=== PATIENT | female | born 1975 ===

== ENCOUNTER 2016-07-28 00:11 | Observation (INO) | payer BC ==
[2016-07-28 00:32] LABS: BASO % 0.4 % (0-6); EOS % 3.8 % (0-6); GRAN % 67.6 % (47-80); HEMATOCRIT 37.5 % (35.0-47.0); HEMOGLOBIN 12.5 gm/dl (11.6-16.0); LYMPH % 19.6 % (16-45); MEAN CELL VOLUME 88.9 fl (81-97); MEAN CORPUSCULAR HEMOGLOBIN 29.6 pg (27-33); MEAN CORPUSCULAR HGB CONC 33.3 g/dl (32-36); MEAN PLATELET VOLUME 10.5 fl (7.4-10.4); MONO % 8.6 % (0-9); PLATELET COUNT 257 K/uL (130-400); RED BLOOD COUNT 4.22 M/uL (3.80-5.40); RED CELL DISTRIBUTION WIDTH 14.5 % (11.5-14.5); WHITE BLOOD COUNT W/O DIFF 10.4 K/uL (4.2-12.2)
[2016-07-28 00:43] LABS: ALB/GLOB RATIO 1.4 (1.1-1.8); ALKALINE PHOSPHATASE 59 U/L (38-126); ALT/SGPT 21 U/L (9-52); ANION GAP 10.2 (7-16); AST/SGOT 20 U/L (14-36); BILIRUBIN,TOTAL 0.43 mg/dL (0.2-1.3); BLOOD UREA NITROGEN 11 mg/dL (7-17); CARBON DIOXIDE 21.8 mmol/L (22-30); CREATININE 0.8 mg/dL (0.52-1.04); EST GLOMERULAR FILTRATION RATE > 60 ml/min; GLUCOSE,RANDOM 59 mg/dL (70-110); TOTAL PROTEIN 6.8 gm/dL (6.3-8.2)
--- NOTE | 2016-07-28 00:50 | Emergency Department Record ---
History of Present Illness - General Chief complaint: Hypogylcemia Stated complaint: LOW BLOOD SUGAR Time Seen by Provider: 07/28/16 00:18 Source: Patient Mode of Arrival: EMS Limitations: No limitations - History of Present Illness Initial comments: 41 yo female with a previous history of IDDM presents to ED following a hypoglycemic episode and possible seizure. EMS reports that the patient was found unresponsive, glucose < 10. D25 was administered with increase in glucose to 72. En-route, patient's glucose dropped to 30, glucose was repeated. On arrival, patient is unaware of what happened and reports that she is feeling much better. Patient denies headache, body aches, or recent illness. Patient reports taking both her Levimir and Novolog tonight as usual, did eat dinner but reports "I didn't eat any carbs, that may be whey my sugar dropped". MD Complaint: Generalized weakness Onset/Timin -: Hour(s) Location: Generalized Severity: Moderate Improves with: Medication Associated Symptoms: Denies other symptoms - Dev[place] Coma Scale Eye Response: (4) Open spontaneously Motor Response: (6) Obeys commands Verbal Response: (5) Oriented Devens Total: 15 - Related Data Home Medications Medication Instructions Recorded Confirmed Last Taken Calcium Carbonate [Calcium] 600 mg PO BID tab 09/18/15 07/28/16 09/18/15 Carvedilol [Coreg] 25 mg PO BID tab 09/18/15 07/28/16 09/18/15 Insulin Aspart [Novolog] 0 unit SQ 0745,1215,2200 cartridge 09/18/15 07/28/16 09/18/15 Insulin Detemir [Levemir Flextouch] 10 unit SQ QHS pen.injctr 09/18/1509/18/15 Insulin Detemir [Levemir Flextouch] 15 unit SQ QAM pen.injctr 09/18/1509/18/15 Multivitamin [Multi-Day Vitamins] 1 each PO DAILY tab 09/18/15 07/28/16 Mycophenolate Mofetil [Cellcept] 1,000 mg PO BID tab 09/18/15 07/28/16 09/18/15 Prednisone 5 mg PO DAILY tab 09/18/15 07/28/16 09/18/15 Ranitidine HCl [Zantac] 150 mg PO QHS tab 09/18/15 07/28/16 Unknown Tacrolimus 2 mg PO BID cap 09/18/15 07/28/16 09/18/15 Allergies Allergy/AdvReac Type Severity Reaction Status Date / Time amoxicillin Allergy Intermediate hives Verified 07/28/16 00:19 NSAIDS (Non-Steroidal Allergy Pt hx of Verified 07/28/16 00:19 Anti-Inflamma renal transplant Travel Screening - Travel/Exposure Within Last 30 Days Have you traveled within the last 30 days?: No - Travel/Exposure Within Last Year Have you traveled outside the [place] in the last year?: No - Additonal Travel Details Have you been exposed to anyone with a communicable illness?: No - Travel Symptoms Symptom Screening: None Review of Systems Constitutional: Denies: Chills, Fever, Malaise, Night sweats Eyes: Denies: Eye discharge, Eye pain ENT: Denies: Congestion, Ear pain, Epistaxis Respiratory: Denies: Cough, Dyspnea Cardiovascular: Denies: Chest pain, Dyspnea on exertion Endocrine: Denies: Fatigue, Heat or cold intolerance Gastrointestinal: Denies: Abdominal pain, Nausea, Vomiting Genitourinary: Denies: Incontinence, Retention Musculoskeletal: Denies: Arthralgia, Back pain, Gout, Joint swelling Skin: Denies: Bruising, Change in color Neurological: Denies: Abnormal gait, Confusion, Headache, Seizure Psychiatric: Denies: Anxiety Hematological/Lymphatic: Denies: Anemia, Blood Clots Past Medical History - SOCIAL HISTORY Smoking Status: Former smoker Alcohol Use: Occassional Drug Use: None - RESPIRATORY Hx Respiratory Disorders: No - CARDIOVASCULAR Hx Cardio Disorders: Yes Hx Hypertension: Yes - NEURO Hx Neuro Disorders: No - GI Hx GI Disorders: Yes Hx Abdominal Pain: Yes - Hx Genitourinary Disorders: Yes Hx Renal Disease: Yes Comment:: kidney transplant - ENDOCRINE Hx Endocrine Disorders: Yes Hx Diabetes: Yes (dx 8yo) - MUSCULOSKELETAL Hx Musculoskeletal Disorders: No - PSYCH Hx Psych Problems: No - HEMATOLOGY/ONCOLOGY Hx Hematology/Oncology Disorders: Yes Comment:: Basel cell carcinoma in july 2015 on left mid outer abdomin Family Medical History Any Significant Family History?: No Hx Cancer: Father, Mother Hx Heart Disease: Mother Hx HTN: Mother Physical Exam - General General Appearance: Alert, Oriented x3, Cooperative, No acute distress Limitations: No limitations - Head Head exam: Atraumatic, Normocephalic, Normal inspection Head exam detail: negative: Abrasion, Contusion, Ackerman's sign, General tenderness, Hematoma, Laceration - Eye Eye exam: Normal appearance. negative: Conjunctival injection, Periorbital swelling, Periorbital tenderness, Scleral icterus - ENT Ear exam: negative: Auricular hematoma, Auricular trauma Nasal Exam: negative: Active bleeding, Discharge, Dried blood, Foreign body Mouth exam: negative: Drooling, Laceration, Muffled voice, Tongue elevation - Neck Neck exam: Normal inspection. negative: Meningismus, Tenderness - Respiratory Respiratory exam: Normal lung sounds bilaterally. negative: Rales, Respiratory distress, Rhonchi, Stridor - Cardiovascular Cardiovascular Exam: Regular rate, Normal rhythm, Normal heart sounds - GI/Abdominal GI/Abdominal exam: Soft. negative: Rebound, Rigid, Tenderness - Rectal Rectal exam: Deferred - exam: Deferred - Extremities Extremities exam: Normal inspection. negative: Calf tenderness, Pedal edema, Tenderness - Back Back exam: Denies: CVA tenderness (R), CVA tenderness (L) - Neurological Neurological exam: Alert, Normal gait, Oriented X3 - Psychiatric Psychiatric exam: Normal affect, Normal mood - Skin Skin exam: Normal color. negative: Abrasion Type of lesion: negative: abrasion Course Vital Signs 07/28/16 07/28/16 00:18 00:19 Temperature 97.5 F L Pulse Rate 71 Pulse Rate [ 72 Pulse Ox Probe] Respiratory 18 18 Rate Blood Pressure 125/64 Blood Pressure 125/64 [Left Arm] Pulse Ox 96 96 - Reevaluation(s) Reevaluation #1: 07/28/16 00:45 On arrival, BS at 00:13 was 107 Labs resulted from blood draw at 00:25, glucose 59. Patient is currently eating , will recheck glucose at 1:00. Reevaluation #2: 07/28/16 01:05 Repeat accu check is 50 after eating peanut butter toast and orange juice, will initiate D51/2 NS at 100 mL/hour and admit for observation due to recurrent hypoglycemia. Reevaluation #3: 07/28/16 06:40 Case was discussed with Olya Neff, will accept admission at this time. Medical Decision Making - Lab Data Result diagrams: 07/28/16 00:25 07/28/16 00:25 Lab Results 07/28/16 07/28/16 07/28/16 Range/Units 00:13 00:25 00:25 WBC 10.4 (4.2-12.2) K/uL RBC 4.22 (3.80-5.40) M/uL Hgb 12.5 (11.6-16.0) gm/dl Hct 37.5 (35.0-47.0) % MCV 88.9 (81-97) fl MCH 29.6 (27-33) pg MCHC 33.3 (32-36) g/dl RDW 14.5 (11.5-14.5) % Plt Count 257 (130-400) K/uL MPV 10.5 H (7.4-10.4) fl Gran % 67.6 (47-80) % Lymphocytes % 19.6 (16-45) % Monocytes % 8.6 (0-9) % Eosinophils % 3.8 (0-6) % Basophils % 0.4 (0-6) % Sodium 142 (136-145) mmol/L Potassium 3.0 L (3.5-5.1) mmol/L Chloride 110 H (98-107) mmol/L Carbon Dioxide 21.8 L (22-30) mmol/L Anion Gap 10.2 (7-16) BUN 11 (7-17) mg/dL Creatinine 0.8 (0.52-1.04) mg/dL Estimated GFR > 60 ml/min POC Glucose 107 (70-110) mg/dL Random Glucose 59 L (70-110) mg/dL Calcium 9.6 (8.5-10.1) mg/dL Total Bilirubin 0.43 (0.2-1.3) mg/dL AST 20 (14-36) U/L ALT 21 (9-52) U/L Alkaline Phosphatase 59 (38-126) U/L Total Protein 6.8 (6.3-8.2) gm/dL Albumin 4.0 (3.5-5.0) gm/dL Globulin 2.8 (1.4-4.8) gm/dL Albumin/Globulin Ratio 1.4 (1.1-1.8) Disposition Disposition: Admit Clinical Impression: Hypoglycemia, Insulin dependent diabetes mellitus Disposition: Still a Patient at [facility] Decision to Admit: Admit from ER Decision to Admit Date: 07/28/16 Decision to Admit Time: :07 Condition: (2) Stable Time of Disposition: 01:07
[2016-07-28] MEDS ORDERED: DEXTROSE 5 %-0.45 % NACL 1,000 ML IV PRN (02:01)
[2016-07-28] MEDS ORDERED: ACETAMINOPHEN 500 MG TABLET PO PRN (02:01)
--- NOTE | 2016-07-28 06:54 | History & Physical ---
History of Present Illness - Date of Service Date of Service for History & Physical: 07/28/16 - History of Present Illness Admitting Diagnosis: recurrent hypoglycemia. IDDM. Renal transplant History of Present Illness: 41 yo insulin dependent diabetic admitted for hypoglycemia. PMHx of type one diabetic, htn, obesity, acid reflux and s/p kidney transplant in 2010. Patient's fiance called EMS as patient became unresponsive at home. When EMS arrived, patient had a glucose of 10. D25 administered and glucose increased to 72, however dropped to 30 en route. Patient states she felt much improved once she arrived to the ED though states she felt very exhausted. Patient's VSS upon arrival. BS 59 according to blood drawn at 00:25. She ate a peanut butter toast and orange juice, glucose 50 following. She was started on D51/2 NS @ 100 mls/hr and admitted for further medical management. This morning, patient is lying in bed comfortably. VS remain stable. She tolerated breakfast appropriately. Glucose 177. She denies any h/o similar episodes. States she's been very stressed as she's getting in two weeks. Stress typically causes her BS's to rise and fall. She denies any recent changes to her medications. States she took her 10 Unites of Levemir last night along with her Novolg, however she did not have any carbs with dinner. She denies any lightheadedness, fever, chills, nausea, change in bowel habits, diaphoresis, changes in weight, cough or SOB. PCP: Dr. Noguera Travel Screening - Travel/Exposure Within Last 30 Days Have you traveled within the last 30 days?: No - Travel/Exposure Within Last Year Have you traveled outside the [place] in the last year?: No - Additonal Travel Details Have you been exposed to anyone with a communicable illness?: No - Travel Symptoms Symptom Screening: None Review of Systems Constitutional: Denies: Chills, Fever, Malaise, Night sweats Eyes: Denies: Eye discharge, Eye pain ENT: Denies: Congestion, Ear pain, Epistaxis Respiratory: Denies: Cough, Dyspnea Cardiovascular: Denies: Chest pain, Dyspnea on exertion Endocrine: Denies: Fatigue, Heat or cold intolerance Gastrointestinal: Denies: Abdominal pain, Nausea, Vomiting Genitourinary: Denies: Incontinence, Retention Musculoskeletal: Denies: Arthralgia, Back pain, Gout, Joint swelling Skin: Denies: Bruising, Change in color Neurological: Denies: Abnormal gait, Confusion, Headache, Seizure Psychiatric: Denies: Anxiety Hematological/Lymphatic: Denies: Anemia, Blood Clots Past Medical History - SOCIAL HISTORY Smoking Status: Former smoker Alcohol Use: Occassional Drug Use: None - RESPIRATORY Hx Respiratory Disorders: No - CARDIOVASCULAR Hx Cardio Disorders: Yes Hx Hypertension: Yes - NEURO Hx Neuro Disorders: No - GI Hx GI Disorders: Yes Hx Abdominal Pain: Yes - Hx Genitourinary Disorders: Yes Hx Renal Disease: Yes Comment:: kidney transplant - ENDOCRINE Hx Endocrine Disorders: Yes Hx Diabetes: Yes (dx 8yo) - MUSCULOSKELETAL Hx Musculoskeletal Disorders: No - PSYCH Hx Psych Problems: No - HEMATOLOGY/ONCOLOGY Hx Hematology/Oncology Disorders: Yes Comment:: Basel cell carcinoma in july 2015 on left mid outer abdomin Family Medical History Any Significant Family History?: No Hx Cancer: Father, Mother Hx Heart Disease: Mother Hx HTN: Mother H&P Meds/Allergies - Allergies Allergies: Allergies Allergy/AdvReac Type Severity Reaction Status Date / Time amoxicillin Allergy Intermediate hives Verified 07/28/16 00:19 NSAIDS (Non-Steroidal Allergy Pt hx of Verified 07/28/16 00:19 Anti-Inflamma renal transplant - Home Medications Home Medications Medication Instructions Recorded Confirmed Last Taken Calcium Carbonate [Calcium] 600 mg PO BID tab 09/18/15 07/28/16 09/18/15 Carvedilol [Coreg] 25 mg PO BID tab 09/18/15 07/28/16 09/18/15 Insulin Aspart [Novolog] 0 unit SQ 0745,1215,2200 cartridge 09/18/15 07/28/16 09/18/15 Insulin Detemir [Levemir Flextouch] 10 unit SQ QHS pen.injctr 09/18/1509/18/15 Insulin Detemir [Levemir Flextouch] 15 unit SQ QAM pen.injctr 09/18/1509/18/15 Multivitamin [Multi-Day Vitamins] 1 each PO DAILY tab 09/18/15 07/28/16 Mycophenolate Mofetil [Cellcept] 1,000 mg PO BID tab 08/04/3007/28/16 09/18/15 Prednisone 5 mg PO DAILY tab 09/18/15 07/28/16 09/18/15 Ranitidine HCl [Zantac] 150 mg PO QHS tab 09/18/15 07/28/16 Unknown Tacrolimus 2 mg PO BID cap 09/18/15 07/28/16 09/18/15 - Active Medications Active Medications: Current Medications Acetaminophen (Tylenol 500mg Tab) 1,000 mg PO Q6H PRN PRN Reason: PAIN/TEMP Carvedilol (Coreg) 25 mg PO BID BLANCO Dextrose/Sodium Chloride () 1,000 mls @ 100 mls/hr IV .Q10H PRN PRN Reason: Hyperglycemica Insulin Aspart (Novolog Flexpen) 10 unit SQ 0745,1215,2200 BLANCO Non-Formulary Medication (Mycophenolate Mofetil [Cellcept]) 1,000 mg PO BID BLANCO Non-Formulary Medication (Tacrolimus [Tacrolimus]) 2 mg PO BID BLANCO Prednisone (Prednisone 5mg) 5 mg PO DAILYWM [facility] Physical Exam - Vital Signs Vital Signs: Vital Signs - Last 24 Hrs Temp Pulse Resp BP Pulse Ox 07/28/16 02:01 97.4 F L 69 20 110/65 96 - General General Appearance: Alert, Oriented x3, Cooperative, No acute distress Limitations: No limitations - Head Head exam: Atraumatic, Normocephalic, Normal inspection Head exam detail: negative: Abrasion, Contusion, Ackerman's sign, General tenderness, Hematoma, Laceration - Eye Eye exam: Normal appearance. negative: Conjunctival injection, Periorbital swelling, Periorbital tenderness, Scleral icterus - ENT Ear exam: negative: Auricular hematoma, Auricular trauma Nasal Exam: negative: Active bleeding, Discharge, Dried blood, Foreign body Mouth exam: negative: Drooling, Laceration, Muffled voice, Tongue elevation - Neck Neck exam: Normal inspection. negative: Meningismus, Tenderness - Respiratory Respiratory exam: Normal lung sounds bilaterally. negative: Rales, Respiratory distress, Rhonchi, Stridor - Cardiovascular Cardiovascular Exam: Regular rate, Normal rhythm, Normal heart sounds - GI/Abdominal GI/Abdominal exam: Soft. negative: Rebound, Rigid, Tenderness - Rectal Rectal exam: Deferred - exam: Deferred - Extremities Extremities exam: Normal inspection. negative: Calf tenderness, Pedal edema, Tenderness - Back Back exam: Denies: CVA tenderness (R), CVA tenderness (L) - Neurological Neurological exam: Alert, Normal gait, Oriented X3 - Psychiatric Psychiatric exam: Normal affect, Normal mood - Skin Skin exam: Normal color. negative: Abrasion Type of lesion: negative: abrasion Results - Labs Result Diagrams: 07/28/16 00:25 07/28/16 00:25 Labs Last 24 Hours: Laboratory Results - last 24 hr 07/28/16 07/28/16 07/28/16 02:00 02:45 04:00 POC Glucose 60 L 88 155 H 07/28/16 06:06 POC Glucose 177 H VTE H&P Assessment - Risk for VTE Risk for VTE: Yes Risk Level: Low Risk Assessment Date: 07/28/16 Risk Assessment Time: 10:00 VTE Orders Placed or Will Be Placed: No VTE Reason for No Prophylaxis: Not Indicated Plan - Detailed Diagnosis and Plan (1) Hypoglycemia Current Visit: Yes Status: Acute Base Code: E16.2 - HYPOGLYCEMIA, UNSPECIFIED Comment: 07/28: - continue diabetic diet - Will d/c D51/2 NS as glucose 177 this morning - Continue home diabetic medications - Monitor glucose Q2 hours (2) Hypokalemia Current Visit: Yes Status: Acute Base Code: E87.6 - HYPOKALEMIA Comment: - - Potassium 3.0 - 40 mEq PO Potassium supplementation (3) Insulin dependent diabetes mellitus Current Visit: Yes Status: Acute Base Code: E11.9 - TYPE 2 DIABETES MELLITUS WITHOUT COMPLICATIONS; Z79.4 - BEARING GRINDER (CURRENT) USE OF INSULIN Comment: 07/28- continue home medications- Levemir 15 Units qam, 10 Units qpm. Novolog sliding scale. (4) Full code status Current Visit: No Status: Acute Base Code: Z78.9 - OTHER SPECIFIED HEALTH STATUS Comment: 07/28- pt full code (5) DVT prophylaxis Current Visit: Yes Status: Acute Base Code: [id number] - Comment: 07/28- low risk. patient ambulating the room.
[2016-07-28] MEDS ORDERED: PREDNISONE 5 MG TAB PO SCH (08:00)
[2016-07-28] MEDS: NOVOLOG FLEXPEN (INSULIN ASPART) 100 UNITS/ML SQ SCH ×2 (08:16→12:58)
[2016-07-28] MEDS ORDERED: POTASSIUM CHLORIDE 20 MEQ TABLET PO SCH (10:00)
[2016-07-28] MEDS ORDERED: MYCOPHENOLATE MOFETIL 1000 MG PO SCH (10:00)
[2016-07-28] MEDS ORDERED: TACROLIMUS 2 MG PO SCH (10:00)
[2016-07-28] MEDS ORDERED: CARVEDILOL 12.5 MG TABLET PO SCH (10:00)
--- NOTE | 2016-07-28 10:48 | Discharge Summary ---
Providers Discharge Summary Date: 07/28/16 Date of admission: 07/28/16 01:37 Expected Date of Discharge: 07/28/16 Attending physician: ANNA BROUSSARD Physical Exam - Vital Signs Vital Signs: Vital Signs - Last 24 Hrs Temp Pulse Pulse Resp BP Pulse Ox 07/28/16 10:01 98.5 F 73 73 14 108/64 96 07/28/16 09:00 73 73 14 07/28/16 02:01 97.4 F L 69 20 110/65 96 - General General Appearance: Alert, Oriented x3, Cooperative, No acute distress Limitations: No limitations - Head Head exam: Atraumatic, Normocephalic, Normal inspection Head exam detail: negative: Abrasion, Contusion, Ackerman's sign, General tenderness, Hematoma, Laceration - Eye Eye exam: Normal appearance. negative: Conjunctival injection, Periorbital swelling, Periorbital tenderness, Scleral icterus - ENT Ear exam: negative: Auricular hematoma, Auricular trauma Nasal Exam: negative: Active bleeding, Discharge, Dried blood, Foreign body Mouth exam: negative: Drooling, Laceration, Muffled voice, Tongue elevation - Neck Neck exam: Normal inspection. negative: Meningismus, Tenderness - Respiratory Respiratory exam: Normal lung sounds bilaterally. negative: Rales, Respiratory distress, Rhonchi, Stridor - Cardiovascular Cardiovascular Exam: Regular rate, Normal rhythm, Normal heart sounds - GI/Abdominal GI/Abdominal exam: Soft. negative: Rebound, Rigid, Tenderness - Rectal Rectal exam: Deferred - exam: Deferred - Extremities Extremities exam: Normal inspection. negative: Calf tenderness, Pedal edema, Tenderness - Back Back exam: Denies: CVA tenderness (R), CVA tenderness (L) - Neurological Neurological exam: Alert, Normal gait, Oriented X3 - Psychiatric Psychiatric exam: Normal affect, Normal mood - Skin Skin exam: Normal color. negative: Abrasion Type of lesion: negative: abrasion Hospitalization - Hospitalization Admission Diagnosis: recurrent hypoglycemia. IDDM. Renal transplant - Problem List/Discharge Diagnosis (1) Hypoglycemia Current Visit: Yes Status: Acute Base Code: E16.2 - HYPOGLYCEMIA, UNSPECIFIED Comment: 07/28: - glucose 138 following breakfast and morning Levemir dose. - continue diabetic diet & home diabetic medications - Monitor glucose fasting in the morning and w/ meals/snacks. - follow up with Dr. Noguera's PALainey 07/30 @ 1:00 pm. - patient agree's to return to the ED re any new or worsening symptoms such as weakness, lightheadedness, fever, chills, n/v, diaphoresis, etc. (2) Hypokalemia Current Visit: Yes Status: Acute Base Code: E87.6 - HYPOKALEMIA Comment: - - Potassium 3.0 - 40 mEq PO Potassium supplementation administered - have labs rechecked within 1-2 days of d/c and follow up with PCP re results. (3) Insulin dependent diabetes mellitus Current Visit: Yes Status: Acute Base Code: E11.9 - TYPE 2 DIABETES MELLITUS WITHOUT COMPLICATIONS; Z79.4 - COLD ROLL CATCHER (CURRENT) USE OF INSULIN Comment: 07/28- - continue home medications- Levemir 15 Units qam, 10 Units qpm. Novolog sliding scale. - monitor BS's at home four times daily (fasting and with every meal and snack) . (4) Full code status Current Visit: No Status: Acute Base Code: Z78.9 - OTHER SPECIFIED HEALTH STATUS Comment: 07/28- pt remained full code - Hospitalization Course Disposition: Home, Self-Care Hospital Course: 41 yo insulin dependent diabetic admitted for hypoglycemia. PMHx of type one diabetic, htn, obesity, acid reflux and s/p kidney transplant in 2010. Patient's fiance called EMS as patient became unresponsive at home. When EMS arrived, patient had a glucose of 10. D25 administered and glucose increased to 72, however dropped to 30 en route. Patient states she felt much improved once she arrived to the ED though states she felt very exhausted. Patient's VSS upon arrival. BS 59 according to blood drawn at 00:25. She ate a peanut butter toast and orange juice, glucose 50 following. She was started on D51/2 NS @ 100 mls/hr and admitted for further medical management. This morning, patient is lying in bed comfortably. VS remain stable. She tolerated breakfast appropriately. Glucose 177. She denies any h/o similar episodes. States she's been very stressed as she's getting in two weeks. Stress typically causes her BS's to rise and fall. She denies any recent changes to her medications. States she took her 10 Unites of Levemir last night along with her Novolg, however she did not have any carbs with dinner. She denies any lightheadedness, fever, chills, nausea, change in bowel habits, diaphoresis, changes in weight, cough or SOB. PCP: Dr. Noguera Abnormal Labs: Abnormal Lab Results 07/28/16 07/28/16 07/28/16 Range/Units 02:00 04:00 06:06 POC Glucose 60 L 155 H 177 H (70-110) mg/dL 07/28/16 Range/Units 09:33 POC Glucose 232 H (70-110) mg/dL Condition at Discharge: (2) Stable Discharge Medications - Discharge Medications Home Medications: Ambulatory Orders Calcium Carbonate [Calcium] 600 mg PO BID tab 09/18/15 [Last Taken 09/18/15] Carvedilol [Coreg] 25 mg PO BID tab 09/18/15 [Last Taken 09/18/15] Insulin Aspart [Novolog] 0 unit SQ 0745,1215,2200 cartridge 09/18/15 [Last Taken 09/18/15] Insulin Detemir [Levemir Flextouch] 10 unit SQ QHS pen.injctr 09/18/15 [Last Taken 09/18/15] Insulin Detemir [Levemir Flextouch] 15 unit SQ QAM pen.injctr 09/18/15 [Last Taken 09/18/15] Multivitamin [Multi-Day Vitamins] 1 each PO DAILY tab 09/18/15 [Last Taken 04/30] Mycophenolate Mofetil [Cellcept] 1,000 mg PO BID tab 09/18/15 [Last Taken 09/17] Prednisone 5 mg PO DAILY tab 09/18/15 [Last Taken 09/18/15] Ranitidine HCl [Zantac] 150 mg PO QHS tab 09/18/15 [Last Taken Unknown] Tacrolimus 2 mg PO BID cap 09/18/15 [Last Taken 09/18/15] Discharge Plan - Discharge Instructions Activity at Discharge: Increase Activity as Tolerated Diet at Discharge: Diabetic Diet Additional Instructions: Continue home medications. Monitor blood sugars fasting in the morning and with each meal/snack. continue diabetic diet. Please be sure to keep blood sugars above 80. get lab work done within 1-2 days Follow up with Dr. Noguera'Lainey Barbosa 07/30 @ 1:00 pm. Please return to the ER in the meantime re any new or worsening symptoms such as weakness, lightheadedness, drop in blood sugars below 80, diaphoresis, confusion or fevers.
== END 2016-07-28 12:43 | disposition home or self-care (01) ==
LOC: ER 00:11 → MEDSURG 01:37
PROVIDERS: ADMIT Family Medicine; ATTEND Family Medicine
DX: E11.649 Type 2 diabetes mellitus with hypoglycemia without coma (principal); Z79.84 Long term (current) use of oral hypoglycemic drugs; E87.6 Hypokalemia; Z78.9 Other specified health status
CPT/HCPCS: 99285 ×2; 96365; 85025; 80053; 36416; 82948; G0378; J7512; J1815; 99236